=== PATIENT | male | born 1965 | race Caucasian/White ===

== ENCOUNTER → 2020-01-20 | Outpatient (CLI) | payer OTHER ==
[2006-01-12 11:45] VITALS: TEMP 97.2
[~2020-01-20] MED LIST: ALLEGRA180 MG PO; FLONASE NASAL S16 GM NS; NEXIUM40 MG PO; ULTRAM50 MG PO; [UNRECOGNIZED DRUG - OTHER]
== END ==
LOC: COL.RAD 07:12
DX: M51.36 Other intervertebral disc degeneration, lumbar region (principal); M48.07 Spinal stenosis, lumbosacral region; M43.17 Spondylolisthesis, lumbosacral region; M47.817 Spondylosis without myelopathy or radiculopathy, lumbosacral region; G89.29 Other chronic pain

== ENCOUNTER → 2021-02-05 | Outpatient (CLI) | payer OTHER ==
[2006-01-12 11:45] VITALS: TEMP 97.2
--- NOTE | 2021-02-05 10:48 | NUR ---
PATIENT REFUSED CONTRAST EVEN THOUGH HE KNOW IT WAS ORDERED. SAID HE SPOKE WITH HIS PROVIDER AND THOUGHT IT WAS NOT NECESSARY. CD WAS GIVEN TO PATIENT AND WAS CLOUDED TO [facility] PER PATIENT REEQUEST.
== END ==
LOC: COL.RAD 09:35
DX: M54.9 Dorsalgia, unspecified (principal)
CPT/HCPCS: A9585

== ENCOUNTER → 2022-02-10 | Outpatient (CLI) | payer OTHER ==
[2006-01-12 11:45] VITALS: TEMP 97.2
== END ==
LOC: COL.RAD 08:23
DX: N50.82 Scrotal pain (principal); L72.0 Epidermal cyst